=== PATIENT | male | born 1970 | race Native Hawaiian/Other Pacific Islander ===

== ENCOUNTER 2016-08-25 01:12 | Emergency (ER) | payer OTHER ==
[~2016-08-25] VITALS: Ht 172.7 cm; Wt 86.2 kg
[~2016-08-25 01:12] MED LIST: ACET7.5T70 PO; ALLO300T23 PO; COLC0.6T6 PO
[2016-08-25 01:48] LABS: PLATELET COUNT 227 K/uL (142-355)
[2016-08-25 01:52] LABS: POTASSIUM 3.7 mmol/L (3.6-5.2); SODIUM 137 mmol/L (136-145)
[2016-08-25 03:02] VITALS: BP 163/107; TEMP 98.3
== END 2016-08-25 03:03 | disposition home or self-care (01) ==
LOC: ED 01:12
DX: R07.89 Other chest pain (principal); R06.00 Dyspnea, unspecified
CPT/HCPCS: 36415; 80053; 83880; 85027; 87804; 96374; 99284; J1885